=== PATIENT | female | born 1940 | race Caucasian/White ===

== ENCOUNTER 2017-09-20 19:16 | Inpatient (IN) | payer MEDICARE ==
[~2017-09-20] VITALS: Ht 157.5 cm; Wt 56.8 kg
[~2017-09-20 19:16] MED LIST: AMIO200T42 PO; AMLO2.5T PO; AMLO5TAB2 PO; ASPI-515 PO; ATEN25TA PO; ATOR10TA9 PO; CEPH-368 PO; CLOP75TA PO; DONE5TAB14 PO; ISOS30TA21 PO; ISOS60TA36 PO; LEVO100T5 PO; LEVO75TA5 PO; LEVO88TA4 PO; LISI-167 PO; LISI-170 PO; MEMA28CA PO; METO25TA35 PO; PRAV20TA2 PO; PRAV40TA2 PO; PREVASTATIN PO; RANI150T8 PO; RIVA20TA PO
[2017-09-20] MEDS ORDERED: SODIUM CHLORIDE FLUSH 10ML SYR IVF ONE (20:00)
[2017-09-20] MEDS ORDERED: SODIUM CHLORIDE 0.9% 1,000ML IVBOLUS ONE (20:00)
[2017-09-20 20:03] LABS: HEMATOCRIT 36.5 % (34.6-47.8); HEMOGLOBIN 12.6 g/dL (11.7-16.4); WHITE BLOOD COUNT 9.1 x10^3/uL (3.4-10)
[2017-09-20 20:15] LABS: BLOOD UREA NITROGEN 14 mg/dL (7-18)
[2017-09-20 20:21] LABS: ASPARTATE AMINO TRANSFERASE 15 U/L (15-37); IS PT STATUS REG ER OR PRE ER? YES
[2017-09-20 20:27] LABS: PATH.CAST-FLAG NOT PRESENT; SPERM-FLAG NOT PRESENT; SRC-FLAG NOT PRESENT; XTAL-FLAG NOT PRESENT; YLC-FLAG NOT PRESENT
[2017-09-20] MEDS ORDERED: ATOR-2 PO (20:32)
[2017-09-20] MEDS ORDERED: MEMA10TA PO (20:32)
[2017-09-20] MEDS ORDERED: AMLO5TAB2 PO (20:32)
[2017-09-20] MEDS ORDERED: RANI-276 PO (20:34)
[2017-09-20] MEDS ORDERED: CEFTRIAXONE PMX 1GM/50ML 50 ML IV ONE (21:00)
[2017-09-20] MEDS ORDERED: DOCUSATE 100 MG CAPSULE PO PRN (21:30)
[2017-09-20] MEDS ORDERED: ATORVASTATIN 80 MG TABLET PO SCH (21:30)
[2017-09-20] MEDS ORDERED: RIVAROXABAN 20 MG TABLET PO SCH (21:30)
[2017-09-20] MEDS ORDERED: ACETAMINOPHEN 325 MG TABLET PO PRN (21:30)
[2017-09-20] MEDS ORDERED: TEMAZEPAM 15 MG CAPSULE PO PRN (21:30)
[2017-09-20] MEDS ORDERED: hydrALAzine 20 MG/ML, 1ML IVPush PRN (21:30)
[2017-09-20 22:05] VITALS: BP_SYST 152; BP_SYST 159; BP_DIAS 57; BP_DIAS 60; BP_DIAS 61
[2017-09-20] MEDS: MEMANTINE 10MG TABLET PO SCH (23:23)
[2017-09-20] MEDS: SODIUM CHLORIDE 0.9% 1,000 ML IV SCH (23:24)
[2017-09-20] MEDS: AMLODIPINE 5 MG TABLET PO SCH (23:24)
[2017-09-21] MEDS: CEFTRIAXONE PMX 1GM/50ML 50 ML IV SCH ×2 (00:04→11:10)
[2017-09-21 00:23] VITALS: BP 135/53
[2017-09-21 06:18] LABS: IS PT STATUS REG ER OR PRE ER? NO
[2017-09-21 06:51] VITALS: BP 148/57
[2017-09-21] MEDS ORDERED: FAMOTIDINE 20 MG TABLET PO SCH (09:00)
[2017-09-21] MEDS ORDERED: LEVOTHYROXINE 100 MCG TABLET PO SCH (09:00)
[2017-09-21] MEDS ORDERED: DONEPEZIL 5 MG TABLET PO SCH (09:00)
[2017-09-21] MEDS: SODIUM CHLORIDE 0.9% 1,000 ML IV SCH (09:07)
[2017-09-21] MEDS: MEMANTINE 10MG TABLET PO SCH (09:07)
[2017-09-21 09:08] LABS: HEMATOCRIT 35.6 % (34.6-47.8); WHITE BLOOD COUNT 9.6 x10^3/uL (3.4-10)
[2017-09-21] MEDS: AMLODIPINE 5 MG TABLET PO SCH (09:08)
[2017-09-21 09:17] LABS: BLOOD UREA NITROGEN 13 mg/dL (7-18)
[2017-09-21 09:23] LABS: IS PT STATUS REG ER OR PRE ER? NO
[2017-09-21 09:26] VITALS: BP_SYST 151; BP_SYST 155; BP_SYST 166; BP_DIAS 53; BP_DIAS 55; BP_DIAS 56
[2017-09-21] MEDS ORDERED: LEVO250T23 PO (09:54)
== END 2017-09-21 12:30 | disposition home or self-care (01) | DRG 73 ==
LOC: ED 21:19 → EDIP 21:58 → 4EST 22:00
PROVIDERS: ADMIT Family Medicine; ATTEND Hospitalist
DX: G90.8 Other disorders of autonomic nervous system (principal); N17.0 Acute kidney failure with tubular necrosis; D68.69 Other thrombophilia; E86.0 Dehydration; I48.2 Chronic atrial fibrillation; N30.90 Cystitis, unspecified without hematuria; E03.9 Hypothyroidism, unspecified; E78.5 Hyperlipidemia, unspecified; N17.9 Acute kidney failure, unspecified; F03.90 Unspecified dementia, unspecified severity, without behavioral disturbance, psychotic disturbance, mood disturbance, and anxiety; R00.1 Bradycardia, unspecified; R55 Syncope and collapse; I10 Essential (primary) hypertension; K21.9 Gastro-esophageal reflux disease without esophagitis; Z79.01 Long term (current) use of anticoagulants; Z90.49 Acquired absence of other specified parts of digestive tract; Z90.710 Acquired absence of both cervix and uterus; Z88.8 Allergy status to other drugs, medicaments and biological substances
CPT/HCPCS: 36415; 71020; 80048; 80053; 81001; 84439; 84443; 84484; 85025; 85610; 87077; 87086; 87186; 93005; 93306; 96360; 96361; J0696; J7030

== ENCOUNTER → 2018-02-11 | Outpatient (CLI) | payer MEDICARE ==
[~2018-02-11] MED LIST changes: +ATOR-2 PO; +LEVO250T23 PO; +MEMA10TA PO; +RANI-276 PO; +REGADENOSON 0.4 MG/5 ML SYRINGE ONE
== END | disposition home or self-care (01) ==
LOC: CFH 12:45
PROVIDERS: ATTEND Nurse Practitioner Family
DX: I25.119 Atherosclerotic heart disease of native coronary artery with unspecified angina pectoris (principal)
CPT/HCPCS: 78452; 93017; A9502; J2785

== ENCOUNTER 2018-03-03 17:16 | Inpatient (IN) | payer MEDICARE ==
[~2018-03-03] VITALS: Ht 157.5 cm; Wt 60.2 kg
[~2018-03-03 17:16] MED LIST changes: +RANI150T23 PO; -RANI150T8 PO; -REGADENOSON 0.4 MG/5 ML SYRINGE ONE
[2018-03-03] MEDS ORDERED: METOPROLOL 1 MG/ML, 5ML ONE ×2 (17:26→17:45)
[2018-03-03] MEDS ORDERED: ASPIRIN 81 MG TABLET CHEW PO ONE (17:30)
[2018-03-03] MEDS ORDERED: METOPROLOL 1 MG/ML, 5ML IVPush PRN (17:30)
[2018-03-03] MEDS ORDERED: SODIUM CHLORIDE FLUSH 10ML SYR IVF ONE (17:30)
[2018-03-03] MEDS ORDERED: ASPIRIN 81 MG TABLET CHEW ONE (17:35)
[2018-03-03 17:53] LABS: BASOPHILS # (AUTO) 0.02 x10^3/uL (0-0.1); BASOPHILS % (AUTO) 0 % (0-1); EOSINOPHILS # (AUTO) 0.15 x10^3/uL (0-0.4); EOSINOPHILS % (AUTO) 2 % (1-7); LYMPHOCYTES # (AUTO) 1.51 x10^3/uL (1-3.4); LYMPHOCYTES % (AUTO) 18 % (22-44); MD NO; MEAN CORPUSCULAR HEMOGLOBIN 28.4 pg (27.0-34.8); MEAN CORPUSCULAR HGB CONC 33.5 g/dL (32.4-35.8); MEAN CORPUSCULAR VOLUME 84.7 fL (80-100); MEAN PLATELET VOLUME 9.6 fL (7.4-10.4); MONOCYTES # (AUTO) 0.76 x10^3/uL (0.2-0.8); MONOCYTES % (AUTO) 9 % (2-9); NEUTROPHILS # (AUTO) 6.16 x10^3/uL (1.8-6.8); NEUTROPHILS % (AUTO) 72 % (42-75); PLATELET COUNT 244 x10^3/uL (130-400); RED BLOOD COUNT 4.75 x10^6/uL (3.82-5.3); RED CELL DISTRIBUTION WIDTH 13.5 % (9.6-15.2)
[2018-03-03 18:03] LABS: ALBUMIN 3.7 g/dL (3.4-5.0); ANION GAP 9 mmol/L (5-15); CALCIUM 9.1 mg/dL (8.5-10.1); CHLORIDE 112 mmol/L (98-107)
[2018-03-03 18:09] LABS: TROPONIN I < 0.015 ng/mL (0.000-0.045)
[2018-03-03] MEDS ORDERED: ISOS30TA8 PO (18:38)
[2018-03-03] MEDS ORDERED: DONE5TAB14 PO (18:38)
[2018-03-03] MEDS ORDERED: LEVO88TA4 PO (18:38)
[2018-03-03] MEDS ORDERED: LISI5TAB7 PO (18:38)
[2018-03-03] MEDS ORDERED: ATOR10TA9 PO (18:38)
[2018-03-03] MEDS ORDERED: MEMA5TAB PO (18:38)
[2018-03-03] MEDS ORDERED: CARV3.122 PO (18:38)
[2018-03-03] MEDS ORDERED: RIVA10TA PO (18:38)
[2018-03-03] MEDS ORDERED: RANI-276 PO (18:38)
[2018-03-03] MEDS ORDERED: BISACODYL 10 MG SUPP PR PRN (19:00)
[2018-03-03] MEDS ORDERED: morphine SULFATE 10 MG/ML, 1ML IVPush PRN (19:00)
[2018-03-03] MEDS ORDERED: ONDANSETRON ODT 4 MG PO PRN (19:00)
[2018-03-03] MEDS ORDERED: POLYETHYLENE GLYCOL 17 GM PACKET PO PRN (19:00)
[2018-03-03] MEDS ORDERED: NITROGLYCERIN 0.4 MG BOTTLE (25 TABS) SL PRN (19:00)
[2018-03-03] MEDS ORDERED: ACETAMINOPHEN 325 MG TABLET PO PRN (19:00)
[2018-03-03 20:35] VITALS: BP 170/66
[2018-03-03] MEDS ORDERED: DONEPEZIL 5 MG TABLET PO SCH (21:00)
[2018-03-03] MEDS: AMLODIPINE 5 MG TABLET PO SCH (21:00)
[2018-03-03] MEDS ORDERED: RIVAROXABAN 10 MG TABLET PO SCH (21:00)
[2018-03-03] MEDS ORDERED: ATORVASTATIN 10 MG TABLET PO SCH (21:00)
[2018-03-03] MEDS: SODIUM CHLORIDE FLUSH 10ML SYR IVF SCH (21:52)
[2018-03-03] MEDS: CARVEDILOL 3.125 MG TABLET PO SCH (21:55)
[2018-03-03] MEDS: MEMANTINE 5MG TABLET PO SCH (21:56)
[2018-03-03 23:49] LABS: TROPONIN I < 0.015 ng/mL (0.000-0.045)
[2018-03-04 00:48] VITALS: BP 120/61
[2018-03-04 05:33] LABS: BASOPHILS # (AUTO) 0.04 x10^3/uL (0-0.1); BASOPHILS % (AUTO) 1 % (0-1); EOSINOPHILS # (AUTO) 0.27 x10^3/uL (0-0.4); EOSINOPHILS % (AUTO) 4 % (1-7); LYMPHOCYTES # (AUTO) 1.83 x10^3/uL (1-3.4); LYMPHOCYTES % (AUTO) 24 % (22-44); MD NO; MEAN CORPUSCULAR HEMOGLOBIN 28.3 pg (27.0-34.8); MEAN CORPUSCULAR HGB CONC 33.5 g/dL (32.4-35.8); MEAN CORPUSCULAR VOLUME 84.5 fL (80-100); MEAN PLATELET VOLUME 9.6 fL (7.4-10.4); MONOCYTES # (AUTO) 0.83 x10^3/uL (0.2-0.8); MONOCYTES % (AUTO) 11 % (2-9); NEUTROPHILS % (AUTO) 62 % (42-75); PLATELET COUNT 214 x10^3/uL (130-400); RED BLOOD COUNT 4.09 x10^6/uL (3.82-5.3); RED CELL DISTRIBUTION WIDTH 13.5 % (9.6-15.2)
[2018-03-04 05:44] LABS: CHLORIDE 112 mmol/L (98-107)
[2018-03-04 05:54] LABS: ALANINE AMINOTRANSFERASE 18 U/L (12-78); ALBUMIN 3.1 g/dL (3.4-5.0); ALKALINE PHOSPHATASE 89 U/L (45-117); ANION GAP 10 mmol/L (5-15); BILIRUBIN,TOTAL 0.4 mg/dL (0.2-1.0); CALCIUM 8.3 mg/dL (8.5-10.1); CREATININE 0.97 mg/dL (0.55-1.02); TOTAL PROTEIN 6.1 g/dL (6.4-8.2); TROPONIN I < 0.015 ng/mL (0.000-0.045)
[2018-03-04] MEDS ORDERED: ASPIRIN 81 MG TABLET CHEW PO SCH (06:00)
[2018-03-04 07:07] VITALS: BP 157/64
[2018-03-04] MEDS ORDERED: RANI150C PO (08:46)
[2018-03-04] MEDS ORDERED: LEVO100T PO (08:46)
[2018-03-04] MEDS ORDERED: ISOS60TA36 PO (08:46)
[2018-03-04] MEDS ORDERED: ATOR20TA9 PO (08:46)
[2018-03-04] MEDS ORDERED: RIVA20TA PO (08:46)
[2018-03-04] MEDS ORDERED: MEMA10TA PO (08:46)
[2018-03-04] MEDS ORDERED: LISI-167 PO (08:46)
[2018-03-04] MEDS ORDERED: DONE10TA7 PO (08:46)
[2018-03-04] MEDS ORDERED: CARV12.543 PO (08:46)
[2018-03-04] MEDS ORDERED: AMIO200T42 PO (08:46)
[2018-03-04] MEDS: AMLODIPINE 5 MG TABLET PO SCH (08:48)
[2018-03-04] MEDS: MEMANTINE 5MG TABLET PO SCH (08:48)
[2018-03-04] MEDS: CARVEDILOL 3.125 MG TABLET PO SCH (08:48)
[2018-03-04] MEDS: SODIUM CHLORIDE FLUSH 10ML SYR IVF SCH (08:49)
[2018-03-04] MEDS ORDERED: ISOSORBIDE MONONITRATE ER 30 MG TABLET PO SCH (09:00)
[2018-03-04] MEDS ORDERED: LEVOTHYROXINE 100 MCG TABLET PO SCH (09:00)
[2018-03-04] MEDS ORDERED: SENNA/DOCUSATE TABLET PO SCH (09:00)
[2018-03-04] MEDS ORDERED: LEVOTHYROXINE 88 MCG TABLET PO SCH (09:00)
[2018-03-04] MEDS ORDERED: ASPI-515 PO (11:36)
[2018-03-04] MEDS ORDERED: CARV12.52 PO (11:36)
[2018-03-04] MEDS ORDERED: CARVEDILOL 12.5 MG TABLET PO SCH (21:00)
== END 2018-03-04 12:57 | disposition home or self-care (01) | DRG 309 ==
LOC: ED 18:35 → EDIP 18:36 → ED 18:43 → 5SO 19:58 → DCLOUNGE 03-04 12:45
PROVIDERS: ADMIT Hospitalist; ATTEND Hospitalist
DX: I48.0 Paroxysmal atrial fibrillation (principal); D68.69 Other thrombophilia; E44.0 Moderate protein-calorie malnutrition; F03.90 Unspecified dementia, unspecified severity, without behavioral disturbance, psychotic disturbance, mood disturbance, and anxiety; E78.5 Hyperlipidemia, unspecified; E03.9 Hypothyroidism, unspecified; K21.9 Gastro-esophageal reflux disease without esophagitis; I10 Essential (primary) hypertension; Z87.440 Personal history of urinary (tract) infections; Z68.24 Body mass index [BMI] 24.0-24.9, adult; Z79.01 Long term (current) use of anticoagulants; Z79.82 Long term (current) use of aspirin; Z82.3 Family history of stroke; Z90.710 Acquired absence of both cervix and uterus; Z95.0 Presence of cardiac pacemaker; Z98.891 History of uterine scar from previous surgery; Z88.6 Allergy status to analgesic agent; Z90.49 Acquired absence of other specified parts of digestive tract
CPT/HCPCS: 36415; 71045; 80048; 80053; 82040; 84484; 85025; 93005; 99291

== ENCOUNTER 2018-04-02 13:05 | Emergency (ER) | payer MEDICARE ==
[~2018-04-02] VITALS: Ht 157.5 cm; Wt 58.0 kg
[~2018-04-02 13:05] MED LIST changes: +ATOR20TA9 PO; +CARV12.52 PO; +CARV12.543 PO; +CARV3.122 PO; +DONE10TA7 PO; +ISOS30TA8 PO; +LEVO100T PO; +LISI5TAB7 PO; +MEMA5TAB PO; +RANI150C PO; +RIVA10TA PO
[2018-04-02] MEDS ORDERED: SODIUM CHLORIDE 0.9% 1,000ML IVBOLUS ONE (13:30)
[2018-04-02 14:23] LABS: BASOPHILS # (AUTO) 0.02 x10^3/uL (0-0.1); BASOPHILS % (AUTO) 0 % (0-1); EOSINOPHILS # (AUTO) 0.08 x10^3/uL (0-0.4); EOSINOPHILS % (AUTO) 1 % (1-7); LYMPHOCYTES # (AUTO) 1.02 x10^3/uL (1-3.4); LYMPHOCYTES % (AUTO) 10 % (22-44); MD NO; MEAN CORPUSCULAR HEMOGLOBIN 28.6 pg (27.0-34.8); MEAN CORPUSCULAR VOLUME 84.1 fL (80-100); MEAN PLATELET VOLUME 9.8 fL (7.4-10.4); MONOCYTES # (AUTO) 0.44 x10^3/uL (0.2-0.8); MONOCYTES % (AUTO) 4 % (2-9); NEUTROPHILS # (AUTO) 8.52 x10^3/uL (1.8-6.8); NEUTROPHILS % (AUTO) 85 % (42-75); PLATELET COUNT 213 x10^3/uL (130-400); RED BLOOD COUNT 4.28 x10^6/uL (3.82-5.3); RED CELL DISTRIBUTION WIDTH 13.4 % (9.6-15.2)
[2018-04-02 14:30] LABS: CHLORIDE 112 mmol/L (98-107)
[2018-04-02 14:44] LABS: ALBUMIN 3.5 g/dL (3.4-5.0); ANION GAP 6 mmol/L (5-15); CALCIUM 8.2 mg/dL (8.5-10.1); CREATININE 1.01 mg/dL (0.55-1.02); TROPONIN I < 0.015 ng/mL (0.000-0.045)
[2018-04-02 14:44] LABS: MICROSCOPIC INDICATED
[2018-04-02 14:46] LABS: CULTURE INDICATED? NO
[2018-04-02 15:00] VITALS: BP 142/61
== END 2018-04-02 15:54 | disposition home or self-care (01) ==
LOC: ED 14:36
DX: R55 Syncope and collapse (principal); R53.1 Weakness; R42 Dizziness and giddiness; R51 Headache; R40.4 Transient alteration of awareness; R53.83 Other fatigue; I10 Essential (primary) hypertension; E03.9 Hypothyroidism, unspecified; K21.9 Gastro-esophageal reflux disease without esophagitis; E07.9 Disorder of thyroid, unspecified
CPT/HCPCS: 36415; 80048; 81001; 82040; 83735; 84484; 85025; 93005; 99285; J7030

== ENCOUNTER → 2018-04-03 | Outpatient (CLI) | payer MEDICARE | END | disposition home or self-care (01) | LOC: CFH 09:49 | PROVIDERS: ATTEND Family Medicine | DX: Z13.820 Encounter for screening for osteoporosis (principal); M85.88 Other specified disorders of bone density and structure, other site | CPT/HCPCS: 77080 ==

== ENCOUNTER → 2019-02-12 | Outpatient (CLI) | payer MEDICARE ==
[~2019-02-12] MED LIST changes: +AMLO-150 PO; -AMLO2.5T PO; +AMLO2.5T5 PO; -AMLO5TAB2 PO; +ATOR20TA37 PO; -ATOR20TA9 PO; -RANI-276 PO; +RANI-448 PO; -RIVA10TA PO; +RIVA10TA2 PO
== END | disposition home or self-care (01) ==
LOC: CFH 09:25
PROVIDERS: ATTEND Family Medicine
DX: M25.551 Pain in right hip (principal)
CPT/HCPCS: 73523

== ENCOUNTER → 2019-03-13 | Outpatient (CLI) | payer MEDICARE ==
[2019-03-13 15:38] LABS: BASOPHILS # (AUTO) 0.03 x10^3/uL (0-0.1); BASOPHILS % (AUTO) 0 % (0-1); EOSINOPHILS # (AUTO) 0.03 x10^3/uL (0-0.4); EOSINOPHILS % (AUTO) 0 % (1-7); LYMPHOCYTES # (AUTO) 1.47 x10^3/uL (1-3.4); LYMPHOCYTES % (AUTO) 15 % (22-44); MD NO; MEAN CORPUSCULAR HEMOGLOBIN 27.2 pg (27.0-34.8); MEAN CORPUSCULAR HGB CONC 31.6 g/dL (32.4-35.8); MEAN CORPUSCULAR VOLUME 86.1 fL (80-100); MEAN PLATELET VOLUME 10.3 fL (7.4-10.4); MONOCYTES # (AUTO) 0.54 x10^3/uL (0.2-0.8); MONOCYTES % (AUTO) 5 % (2-9); NEUTROPHILS # (AUTO) 7.83 x10^3/uL (1.8-6.8); NEUTROPHILS % (AUTO) 79 % (42-75); PLATELET COUNT 227 x10^3/uL (130-400); RED CELL DISTRIBUTION WIDTH 14.2 % (9.6-15.2)
[2019-03-13 16:05] LABS: ALBUMIN 3.9 g/dL (3.4-5.0); CHLORIDE 110 mmol/L (98-107)
[2019-03-13 16:20] LABS: ALANINE AMINOTRANSFERASE 15 U/L (12-78); ALKALINE PHOSPHATASE 95 U/L (45-117); ANION GAP 8 mmol/L (5-15); BILIRUBIN,TOTAL 0.7 mg/dL (0.2-1.0); CALCIUM 9.1 mg/dL (8.5-10.1); TOTAL PROTEIN 7.1 g/dL (6.4-8.2)
== END | disposition home or self-care (01) ==
LOC: CFH 12:10
PROVIDERS: ATTEND Family Medicine
DX: E03.9 Hypothyroidism, unspecified (principal); R06.9 Unspecified abnormalities of breathing; I48.0 Paroxysmal atrial fibrillation
CPT/HCPCS: 36415; 71046; 80053; 84443; 85025

== ENCOUNTER 2019-06-02 14:34 | Inpatient (IN) | payer MEDICARE ==
[~2019-06-02] VITALS: Ht 157.5 cm; Wt 56.1 kg
[~2019-06-02 14:34] MED LIST changes: +RANI-467 PO; -RANI150T23 PO
--- NOTE | 2019-06-02 14:45 | NUR ---
DR. KULKARNI AT BEDSIDE ASSESSING PT
--- NOTE | 2019-06-02 14:48 | NUR ---
THIS IS A 79YO FEMALE BROUGHT IN BY EMS WITH COMPLAINTS OF CHEST PAIN, DIZZINESS AND WEAKNESS. SHE WAS SENT FROM URGENT CARE. SYMPTOMS STARTED YESTERDAY BUT THE PT THOUGHT SHE WOULD FEEL BETTER AFTER WAKING UP IN THE MORNING. UPON WAKING SHE HAS FELT WEAK AND DIZZY AND PRESSURE IN HER CHEST. HER DAUGHTER IN LAW TOOK HER TO URGENT CARE. PT PLACED ON CONTINOUS [employer]UC[employer]IATE, PULSE OX, AND NIBP MONITORING. DAUGHTER IN LAW AT BEDSIDE.
[2019-06-02 15:12] LABS: BASOPHILS # (AUTO) 0.05 x10^3/uL (0-0.1); BASOPHILS % (AUTO) 1 % (0-1); EOSINOPHILS # (AUTO) 0.11 x10^3/uL (0-0.4); EOSINOPHILS % (AUTO) 1 % (1-7); LYMPHOCYTES # (AUTO) 1.84 x10^3/uL (1-3.4); LYMPHOCYTES % (AUTO) 23 % (22-44); MD NO; MEAN CORPUSCULAR HEMOGLOBIN 28.9 pg (27.0-34.8); MEAN CORPUSCULAR HGB CONC 33.4 g/dL (32.4-35.8); MEAN CORPUSCULAR VOLUME 86.6 fL (80-100); MEAN PLATELET VOLUME 9.6 fL (7.4-10.4); MONOCYTES # (AUTO) 0.69 x10^3/uL (0.2-0.8); MONOCYTES % (AUTO) 9 % (2-9); NEUTROPHILS # (AUTO) 5.25 x10^3/uL (1.8-6.8); NEUTROPHILS % (AUTO) 66 % (42-75); PLATELET COUNT 259 x10^3/uL (130-400); RED BLOOD COUNT 4.58 x10^6/uL (3.82-5.3); RED CELL DISTRIBUTION WIDTH 14.5 % (9.6-15.2)
[2019-06-02 15:22] LABS: ALANINE AMINOTRANSFERASE 19 U/L (12-78); ALBUMIN 3.7 g/dL (3.4-5.0); ANION GAP 8 mmol/L (5-15); CHLORIDE 113 mmol/L (98-107); CREATININE 1.01 mg/dL (0.55-1.02)
[2019-06-02 15:26] LABS: ALKALINE PHOSPHATASE 89 U/L (45-117); BILIRUBIN,TOTAL 0.7 mg/dL (0.2-1.0); TOTAL PROTEIN 7.1 g/dL (6.4-8.2); TROPONIN I < 0.015 ng/mL (0.000-0.045)
--- NOTE | 2019-06-02 15:29 | NUR ---
PT ASSISTED TO RESTROOM. PT HAS STEADY GAIT BUT REPORTS DIZZINESS.
[2019-06-02] MEDS ORDERED: CALC-112 PO (16:00)
[2019-06-02] MEDS ORDERED: CARV6.2512 PO (16:00)
[2019-06-02] MEDS ORDERED: LEVO50TA5 PO (16:01)
[2019-06-02] MEDS ORDERED: OMNIPAQUE 350 MG/ML, 100ML BOTTLE ONE (16:33)
[2019-06-02 16:34] LABS: INTERNATIONAL NORMALIZED RATIO 1.07 (0.93-1.1); PROTHROMBIN TIME 11.2 Seconds (9.6-11.5)
[2019-06-02] MEDS ORDERED: ASPIRIN 81 MG TABLET CHEW PO ONE (17:30)
[2019-06-02] MEDS ORDERED: ASPIRIN 81 MG TABLET CHEW ONE (17:35)
--- NOTE | 2019-06-02 18:19 | NUR ---
[facility] TELEPHONE HAND-OFF REPORT GIVEN TO THANH LINDSAY.
[2019-06-02] MEDS ORDERED: ZOLPIDEM 5MG TABLET PO PRN (18:30)
[2019-06-02] MEDS ORDERED: BUTALB/APAP/CAFFEINE 50MG/325MG/40MG PO PRN (18:30)
[2019-06-02] MEDS ORDERED: GUAIFENESIN/DM 200-20MG, 10ML UDC PO PRN (18:30)
[2019-06-02] MEDS ORDERED: DOCUSATE 100 MG CAPSULE PO PRN (18:30)
[2019-06-02] MEDS ORDERED: ACETAMINOPHEN 325 MG TABLET PO PRN (18:30)
[2019-06-02 19:01] LABS: TROPONIN I < 0.015 ng/mL (0.000-0.045)
[2019-06-02] MEDS ORDERED: RIVAROXABAN 20 MG TABLET PO SCH (19:21)
[2019-06-02] MEDS ORDERED: RIVAROXABAN 15 MG TABLET PO SCH ×2 (19:24→19:25)
[2019-06-02] MEDS ORDERED: ENOXAPARIN 30 MG/0.3 ML SQ SCH (19:30)
[2019-06-02 20:17] VITALS: BP 175/62
[2019-06-02] MEDS: CARVEDILOL 6.25 MG TABLET PO SCH (20:44)
[2019-06-02] MEDS: MEMANTINE 10MG TABLET PO SCH (20:44)
[2019-06-02 23:32] LABS: MICROSCOPIC NOT IND
[2019-06-02 23:38] LABS: CULTURE INDICATED? NO
[2019-06-03 00:10] VITALS: BP 156/60
[2019-06-03 01:25] LABS: TROPONIN I < 0.015 ng/mL (0.000-0.045)
[2019-06-03] MEDS: ASPIRIN 81 MG TABLET EC PO SCH (04:59)
[2019-06-03] MEDS: LEVOTHYROXINE 50 MCG TABLET PO SCH (04:59)
[2019-06-03 05:51] LABS: BASOPHILS # (AUTO) 0.03 x10^3/uL (0-0.1); BASOPHILS % (AUTO) 0 % (0-1); EOSINOPHILS # (AUTO) 0.19 x10^3/uL (0-0.4); EOSINOPHILS % (AUTO) 3 % (1-7); LYMPHOCYTES # (AUTO) 1.57 x10^3/uL (1-3.4); LYMPHOCYTES % (AUTO) 24 % (22-44); MD NO; MEAN CORPUSCULAR HEMOGLOBIN 28.3 pg (27.0-34.8); MEAN CORPUSCULAR VOLUME 85.9 fL (80-100); MEAN PLATELET VOLUME 9.2 fL (7.4-10.4); MONOCYTES # (AUTO) 0.57 x10^3/uL (0.2-0.8); MONOCYTES % (AUTO) 9 % (2-9); NEUTROPHILS # (AUTO) 4.13 x10^3/uL (1.8-6.8); NEUTROPHILS % (AUTO) 64 % (42-75); PLATELET COUNT 218 x10^3/uL (130-400); RED BLOOD COUNT 4.42 x10^6/uL (3.82-5.3); RED CELL DISTRIBUTION WIDTH 13.6 % (9.6-15.2)
[2019-06-03 05:59] LABS: ALANINE AMINOTRANSFERASE 14 U/L (12-78); ALBUMIN 3.3 g/dL (3.4-5.0); ANION GAP 8 mmol/L (5-15); CALCIUM 8.6 mg/dL (8.5-10.1); CHLORIDE 112 mmol/L (98-107); CREATININE 1.17 mg/dL (0.55-1.02)
[2019-06-03 06:01] LABS: ALKALINE PHOSPHATASE 79 U/L (45-117); BILIRUBIN,TOTAL 0.8 mg/dL (0.2-1.0); TOTAL PROTEIN 6.4 g/dL (6.4-8.2)
[2019-06-03] MEDS: CARVEDILOL 6.25 MG TABLET PO SCH (08:28)
[2019-06-03] MEDS: DONEPEZIL 10 MG TABLET PO SCH (08:29)
[2019-06-03] MEDS: MEMANTINE 10MG TABLET PO SCH ×2 (08:29→20:33)
[2019-06-03] MEDS: ISOSORBIDE MONONITRATE ER 60 MG TABLET PO SCH (08:30)
[2019-06-03] MEDS ORDERED: POTASSIUM CHLORIDE 20 MEQ TAB.ER.PRT PO ONE (08:30)
[2019-06-03 09:22] VITALS: BP 146/64
[2019-06-03 14:37] VITALS: BP 108/61
[2019-06-03 19:46] VITALS: BP 127/62
[2019-06-03] MEDS: CARVEDILOL 12.5 MG TABLET PO SCH (20:33)
[2019-06-04 01:59] VITALS: BP 132/66
[2019-06-04] MEDS: ASPIRIN 81 MG TABLET EC PO SCH (06:28)
[2019-06-04] MEDS: LEVOTHYROXINE 50 MCG TABLET PO SCH (06:29)
[2019-06-04 08:31] VITALS: BP 161/68
[2019-06-04] MEDS ORDERED: LISINOPRIL 10 MG TABLET PO SCH (09:00)
[2019-06-04] MEDS: CARVEDILOL 12.5 MG TABLET PO SCH (09:29)
[2019-06-04] MEDS: ISOSORBIDE MONONITRATE ER 60 MG TABLET PO SCH (09:29)
[2019-06-04] MEDS: DONEPEZIL 10 MG TABLET PO SCH (09:29)
[2019-06-04] MEDS: MEMANTINE 10MG TABLET PO SCH (09:29)
[2019-06-04] MEDS ORDERED: REGADENOSON 0.4 MG/5 ML SYRINGE ONE (11:05)
[2019-06-04] MEDS ORDERED: CARV12.543 PO (12:55)
[2019-06-04] MEDS ORDERED: LISI-167 PO (12:55)
== END 2019-06-04 15:31 | disposition home or self-care (01) | DRG 392 ==
LOC: ED 16:49 → EDIP 17:20 → 5SO 18:59 → DCLOUNGE 06-04 15:18
PROVIDERS: ADMIT Internal Medicine; ATTEND Internal Medicine
PROC: 4B02XSZ Measurement of Cardiac Pacemaker, External Approach (ICD-10-PCS; principal; 2019-06-04)
DX: K21.9 Gastro-esophageal reflux disease without esophagitis (principal); N17.9 Acute kidney failure, unspecified; D68.69 Other thrombophilia; E87.1 Hypo-osmolality and hyponatremia; I48.2 Chronic atrial fibrillation; E03.9 Hypothyroidism, unspecified; E78.5 Hyperlipidemia, unspecified; F03.90 Unspecified dementia, unspecified severity, without behavioral disturbance, psychotic disturbance, mood disturbance, and anxiety; I10 Essential (primary) hypertension; Z95.0 Presence of cardiac pacemaker
CPT/HCPCS: 0399T; 36415; 71045; 71275; 78452; 80053; 81003; 83735; 83880; 84439; 84443; 84484; 85025; 85379; 85610; 85730; 93005; 93017; 93306; 93880; 99285; G0378; J2785; Q9967; A9502; C9898

== ENCOUNTER → 2019-09-04 | Outpatient (CLI) | payer MEDICARE ==
[~2019-09-04] MED LIST changes: +CALC-112 PO; +CARV6.2512 PO; +LEVO50TA5 PO
== END | disposition home or self-care (01) ==
LOC: RAD 12:28
PROVIDERS: ATTEND Physician Assistant Surgical
DX: S92.021A Displaced fracture of anterior process of right calcaneus, initial encounter for closed fracture (principal); S92.114A Nondisplaced fracture of neck of right talus, initial encounter for closed fracture; I10 Essential (primary) hypertension; X58.XXXA Exposure to other specified factors, initial encounter; Y93.89 Activity, other specified; Y92.89 Other specified places as the place of occurrence of the external cause; Y99.8 Other external cause status; Z79.899 Other long term (current) drug therapy

== ENCOUNTER → 2020-09-28 | Outpatient (CLI) | payer MEDICARE ==
[~2020-09-28] MED LIST changes: -RANI-448 PO; +RANI-460 PO; +SYNTHROID
== END | disposition home or self-care (01) ==
LOC: CFH 10:37
DX: Z13.820 Encounter for screening for osteoporosis (principal); N95.9 Unspecified menopausal and perimenopausal disorder; M85.80 Other specified disorders of bone density and structure, unspecified site
CPT/HCPCS: 77080

== ENCOUNTER 2021-01-25 18:52 | Emergency (ER) | payer MEDICARE ==
[~2021-01-25] VITALS: Ht 157.5 cm; Wt 56.8 kg
[~2021-01-25 18:52] MED LIST changes: -ASPI-515 PO; +ASPI-963 PO
--- NOTE | 2021-01-25 19:24 | NUR ---
LARS (MOTHER IN[facility]) [phone]
[2021-01-25] MEDS ORDERED: SODIUM CHLORIDE FLUSH 10ML SYR IVF ONE (19:30)
[2021-01-25 19:40] LABS: BASOPHILS % (AUTO) 1 % (0-1); EOSINOPHILS % (AUTO) 1 % (1-7); LYMPHOCYTES % (AUTO) 19 % (22-44); MEAN CORPUSCULAR HEMOGLOBIN 26.5 pg (27.0-34.8); MEAN CORPUSCULAR HGB CONC 32.7 g/dL (32.4-35.8); MEAN PLATELET VOLUME 9.2 fL (7.4-10.4); MONOCYTES % (AUTO) 10 % (2-9); NEUTROPHILS % (AUTO) 70 % (42-75); PLATELET COUNT 254 x10^3/uL (130-400); RED BLOOD COUNT 4.09 x10^6/uL (3.82-5.3); RED CELL DISTRIBUTION WIDTH 14.7 % (9.6-15.2)
--- NOTE | 2021-01-25 19:40 | NUR ---
PT STATES THIS AM " CHEST PRESSURE AT 0700 2/10 PAIN CONSTANT MOSTLY ALL DAY THAT COMES AND GOES. DAUGHTER IN LAW SAID SHE HAD A ABNORMAL BLOOD PRESSURE THAT HIGH, AND WAS DONE BY DAUGHTER AT 1730 THIS EVENING" PT STATES "WAS IN BED MOST OF THE DAY AND DIDN'T FEEL GOOD".
--- NOTE | 2021-01-25 19:42 | NUR ---
PT STATES "HYPERTENSION 4 YEARS. A-FIB 4 YEARS, PACEMAKER PUT IN NOV 14 2017" ANA LUISA SIGNIFICANT OTHER STATES, "THAT SHE HAS MEMORY LOSS STARTED ABOUT 5 YEARS AND HAS BEEN GRADUALLY GETTING WORSE "[facility] MEMORY HAS BEEN GOOD HER SHORT TERM MEMORY IS WHAT HAS BEEN GRADUALLY WORSENING"
[2021-01-25 19:45] LABS: MD NO
--- NOTE | 2021-01-25 19:46 | NUR ---
PT STATES DAUGHTER IN LAW JACINTA SAID, THIS EVENING AROUND 1730 CAME OVER AND CHECKED ON HER THAT SHE CHECKED HER BP AND THAT IT WAS HIGH AND THAT HER HEART RATE WAS LOWER THAN NORMAL" PT STATES "THAT SHE HAS TAKEN HER 3 AM MEDICATION TODAY DOES NOT REMBER WHICH ONES. DID NOT TAKE HER PM MEDICATIONS AND IS AROUND 7 PILLS"
[2021-01-25 19:48] LABS: ALANINE AMINOTRANSFERASE 26 U/L (12-78); ALBUMIN 3.5 g/dL (3.4-5.0); ANION GAP 4 mmol/L (5-15); CALCIUM 8.6 mg/dL (8.5-10.1); CHLORIDE 112 mmol/L (98-107); CREATININE 1.14 mg/dL (0.55-1.02)
[2021-01-25 19:52] LABS: ALKALINE PHOSPHATASE 74 U/L (45-117); BILIRUBIN,TOTAL 0.4 mg/dL (0.2-1.0); TOTAL PROTEIN 6.6 g/dL (6.4-8.2); TROPONIN I < 0.015 ng/mL (0.000-0.045)
[2021-01-25 20:58] VITALS: BP 164/64
--- NOTE | 2021-01-25 20:58 | NUR ---
PT TO RESTROOM WITH SIGNIFICANT OTHER ANA LUISA TO URINATE.
--- NOTE | 2021-01-25 21:33 | NUR ---
Caregiver given discharge instructions and they have confirmed that they understand the instructions. Patient ambulatory with steady gait.
== END 2021-01-25 21:34 | disposition home or self-care (01) ==
LOC: ED 20:48
DX: R07.2 Precordial pain (principal); R94.31 Abnormal electrocardiogram [ECG] [EKG]; I10 Essential (primary) hypertension; E78.5 Hyperlipidemia, unspecified; E03.9 Hypothyroidism, unspecified; K21.9 Gastro-esophageal reflux disease without esophagitis; Z95.0 Presence of cardiac pacemaker; Z90.710 Acquired absence of both cervix and uterus; Z90.89 Acquired absence of other organs
CPT/HCPCS: 36415; 71045; 80053; 84484; 85025; 93005; 99285

== ENCOUNTER → 2021-03-31 | Outpatient (CLI) | payer MEDICARE | END | disposition home or self-care (01) | LOC: RAD 15:28 | PROVIDERS: ATTEND Internal Medicine Cardiovascular Disease | DX: R07.9 Chest pain, unspecified (principal); E03.9 Hypothyroidism, unspecified; E78.2 Mixed hyperlipidemia; I10 Essential (primary) hypertension; I48.0 Paroxysmal atrial fibrillation; I49.5 Sick sinus syndrome; Z79.01 Long term (current) use of anticoagulants; Z95.0 Presence of cardiac pacemaker | CPT/HCPCS: 71046 ==

== ENCOUNTER 2021-05-28 11:02 | Emergency (ER) | payer MEDICARE ==
[~2021-05-28] VITALS: Ht 157.5 cm; Wt 52.5 kg
--- NOTE | 2021-05-28 11:50 | NUR ---
[facility] S/O [phone].
--- NOTE | 2021-05-28 11:50 | NUR ---
PT TRANSPORTED TO [facility].
--- NOTE | 2021-05-28 12:34 | NUR ---
ASSISTED PT WITH BEDPAN. VSS.
[2021-05-28] MEDS ORDERED: KETOROLAC 30 MG/1 ML IM ONE (14:00)
[2021-05-28] MEDS ORDERED: KETOROLAC 30 MG/1 ML ONE (14:06)
--- NOTE | 2021-05-28 14:14 | NUR ---
PT AMBULATED SLOWLY TO RESTROOM WITH ASSISTANCE.
--- NOTE | 2021-05-28 14:21 | NUR ---
DR. JOHNSON AT BEDSIDE TO DISCUSS POC.
[2021-05-28 14:49] VITALS: BP 160/62
== END 2021-05-28 14:50 | disposition home or self-care (01) ==
LOC: ED 14:20
DX: S30.0XXA Contusion of lower back and pelvis, initial encounter (principal); I10 Essential (primary) hypertension; E03.9 Hypothyroidism, unspecified; W18.30XA Fall on same level, unspecified, initial encounter; Y93.89 Activity, other specified; Y92.009 Unspecified place in unspecified non-institutional (private) residence as the place of occurrence of the external cause; Y99.8 Other external cause status
CPT/HCPCS: 72190; 73501; 96372; 99284; J1885

== ENCOUNTER 2021-05-31 17:00 | Emergency (ER) | payer MEDICARE ==
[~2021-05-31] VITALS: Ht 157.5 cm; Wt 55.0 kg
--- NOTE | 2021-05-31 17:30 | NUR ---
Patient presents to ER c/o vomiting since yesterday. Denies blood in vomitus. Denies abd pain. States she has some chest pressure. Hx of pacemaker. Does not remember the last time she vomited. "I have some memory problems." Patient currently denies nausea or pain. Patient is in NAD. Respirations even and unlabored. at bedside.
[2021-05-31] MEDS ORDERED: ONDANSETRON 2MG/ML, 2ML IVPush ONE (18:00)
[2021-05-31] MEDS ORDERED: FAMOTIDINE 20 MG/2 ML IVPush ONE (18:00)
[2021-05-31] MEDS ORDERED: SODIUM CHLORIDE 0.9%, 500ML IVBOLUS ONE (18:00)
[2021-05-31 18:07] LABS: BASOPHILS % (AUTO) 1 % (0-1); EOSINOPHILS % (AUTO) 0 % (1-7); LYMPHOCYTES % (AUTO) 8 % (22-44); MEAN CORPUSCULAR HEMOGLOBIN 24.5 pg (27.0-34.8); MEAN CORPUSCULAR HGB CONC 32.5 g/dL (32.4-35.8); MEAN PLATELET VOLUME 9.3 fL (7.4-10.4); MONOCYTES % (AUTO) 4 % (2-9); NEUTROPHILS % (AUTO) 87 % (42-75); PLATELET COUNT 296 x10^3/uL (130-400); RED BLOOD COUNT 4.91 x10^6/uL (3.82-5.3); RED CELL DISTRIBUTION WIDTH 16.3 % (9.6-15.2)
[2021-05-31 18:09] LABS: ALBUMIN 3.6 g/dL (3.4-5.0); ANION GAP 6 mmol/L (5-15); CALCIUM 8.6 mg/dL (8.5-10.1); CHLORIDE 100 mmol/L (98-107)
[2021-05-31] MEDS ORDERED: ONDANSETRON 2MG/ML, 2ML ONE (18:10)
[2021-05-31 18:16] LABS: ALANINE AMINOTRANSFERASE 33 U/L (12-78); ALKALINE PHOSPHATASE 79 U/L (45-117); BILIRUBIN,TOTAL 0.7 mg/dL (0.2-1.0); CREATININE 0.99 mg/dL (0.55-1.02); TOTAL PROTEIN 7.3 g/dL (6.4-8.2); TROPONIN I < 0.015 ng/mL (0.000-0.045)
[2021-05-31 18:20] VITALS: BP 144/52
--- NOTE | 2021-05-31 18:20 | NUR ---
IV established; medicated patient per mar.
[2021-05-31 18:49] LABS: OVALOCYTES 1+; SCHISTOCYTES 1+
[2021-05-31 18:50] LABS: <PLATELET ESTIMATE> ADEQUATE; <PLT MORPHOLOGY> NORMAL PLT MORPH
[2021-05-31] MEDS ORDERED: PANTOPRAZOLE 40 MG IV IVPush ONE (19:00)
[2021-05-31] MEDS ORDERED: PANTOPRAZOLE 40 MG IV ONE (19:22)
== END 2021-05-31 19:43 | disposition home or self-care (01) ==
LOC: ED 17:46
DX: R10.13 Epigastric pain (principal); R11.2 Nausea with vomiting, unspecified; E86.0 Dehydration; I10 Essential (primary) hypertension; E78.5 Hyperlipidemia, unspecified; K21.9 Gastro-esophageal reflux disease without esophagitis; Z90.89 Acquired absence of other organs; Z90.710 Acquired absence of both cervix and uterus; Z95.0 Presence of cardiac pacemaker
CPT/HCPCS: 36415; 71045; 80053; 83690; 84484; 85025; 93005; 96374; 96375; 99285; C9113; J2405; J7040